=== PATIENT | female | born 1935 | race Caucasian/White ===

== ENCOUNTER 2016-07-04 16:22 | Emergency (ER) | payer MEDICARE, OTHER ==
--- NOTE | 2016-07-04 17:09 | EDM.PDOC ---
ED HPI NEURO - General Chief Complaint: Neurological Problem Stated Complaint: DIZZY Time Seen by Provider: 07/04/16 16:50 Source of Information: Reports: Patient, RN, RN notes reviewed History Limitations: Reports: No limitations - History of Present Illness INITIAL COMMENTS - FREE TEXT/NARRATIVE: Cough for 1-1/2 weeks. Today at 4 p.m. was the passenger in a car with her and had similar onset of being "off balance" an it appeared to her that objects in front of her were tipping or leaning and moving. Episode lasted approximately 4-5 minutes. Denies headache, nausea, vomiting or ear pain. Has history of vertigo, but hasn't had it for several years. Patient states her cough is getting better and going away. Timing/Duration: Reports: Sudden onset Severity: mild Improves with: Reports: None Worsens with: Reports: None Associated Symptoms: Reports: no other symptoms - Related Data Allergies/ADRs: Allergies Allergy/AdvReac Type Severity Reaction Status Date / Time No Known Allergies Allergy Verified 07/04/16 16:34 Home Meds: Home Meds . [No Known Home Meds] 07/04/16 [History] Social & Family History - Family History Family Medical History: Noncontributory ED ROS GENERAL - Review of Systems Review Of Systems: ROS reveals no pertinent complaints other than HPI. ED EXAM, NEURO - Physical Exam Exam: See Below Exam Limited By: No limitations General Appearance: alert, WD/WN, no apparent distress Eye Exam: bilateral eye: normal inspection Ears: other (Right TM retracted but clear. Left TM dull. ) Nose: other (mild inflammation of nasal mucosa.) Throat/Mouth: Normal inspection, Normal lips, Normal teeth, Normal gums, Normal oropharynx, Normal voice, No airway compromise Head Exam: atraumatic, normocephalic Respiratory/Chest: other (occasional mild cough.) Cardiovascular: normal peripheral pulses, regular rate, rhythm, no edema, no gallop, no JVD, no murmur, no rub GI/Abdominal: normal bowel sounds, soft, non tender, no organomegaly, no distention, no abnormal bruit, no mass Neurological: other (left lateral gaze nystagmus.) Back Exam: normal inspection, full range of motion, NT Extremities: normal inspection, normal range of motion, non-tender, no pedal edema, normal capillary refill Psychiatric: normal affect, normal mood Skin Exam: Warm, Dry, Intact, Normal color, No rash EKG INTERPRETATION EKG Date: 07/04/16 Time: 16:53 Rhythm: other (sinus rhythm) Rate (beats/min): 97 [place]: normal P-wave: present QRS: normal ST-T: normal QT: normal Comparison: NA - no prior EKG Course - Vital Signs Last Recorded V/S: Last Vital Signs Temp 37.3 C 07/04/16 16:52 Pulse 101 H 07/04/16 16:52 Resp 18 07/04/16 16:52 BP 184/71 H 07/04/16 16:52 Pulse Ox 97 07/04/16 16:52 - Orders/Labs/Meds Orders: Active Orders 24 hr Category Date Time Status EKG Documentation Completion [RC] URGENT Care 07/04/16 17:05 Active Departure - Departure Time of Disposition: 17:30 Disposition: Home, Self-Care 01 Condition: good Clinical Impression: Vertigo, Viral URI with cough, Elevated blood pressure reading without diagnosis of hypertension Instructions: Vertigo, Eyap-sl-Bbhy Forms: ED Department Discharge Additional Instructions: Rx: Meclizine 25mg Follow up in clinic if any new symptoms develop. Have your primary doctor recheck your blood pressure in the next week. - My Orders Last 24 Hours: My Active Orders 07/04/16 17:05 EKG Documentation Completion [RC] URGENT - Assessment/Plan Last 24 Hours: My Active Orders 07/04/16 17:05 EKG Documentation Completion [RC] URGENT
--- NOTE | 2016-07-08 12:07 | EKG ---
07/04/2016 - TAB COUCH - TIME OF EK hours. I reviewed the EKG and agree with the machine's reading. [facility] /[id number]
== END 2016-07-04 17:46 | disposition home or self-care (01) ==
LOC: DL.ED 16:22
CPT/HCPCS: 93005; 93010; 99283

== ENCOUNTER 2017-08-17 10:28 | Emergency (ER) | payer MEDICARE, OTHER ==
--- NOTE | 2017-08-17 10:45 | EDM.PDOC ---
ED HPI GENERAL MEDICAL PROBLEM - General Stated Complaint: SOB Time Seen by Provider: 08/17/17 10:35 Source of Information: Reports: Patient History Limitations: Reports: No Limitations - History of Present Illness INITIAL COMMENTS - FREE TEXT/NARRATIVE: This 82 yo female patient reports to the ED with increased shortness of breath. The patient reports her symptoms have been getting worse over the past couple of days. The patient reports she has been having a dry cough over the past couple of days. The patient also reports a cramping pain in her upper back. The patient reports her symptoms got much worse this morning after she took a shower. The patient reports that she has not been seen for these symptoms. Onset: Gradual Duration: Day(s): (2), Constant, Getting Worse Location: Reports: Chest, Back (upper back ) Quality: Reports: Pressure Severity: Moderate Improves with: Reports: None Worsens with: Reports: None Context: Reports: Other Associated Symptoms: Reports: No Other Symptoms Upper Back Pain Score (Numeric/FACES): 4 - Related Data Allergies Allergy/AdvReac Type Severity Reaction Status Date / Time No Known Allergies Allergy Verified 07/04/16 16:34 Home Meds: Home Meds Aspirin 1 tab PO BEDTIME 08/17/17 [History] Fish Oil/DHA/EPA [Fish Oil 1,200 MG] 1 cap PO DAILY 08/17/17 [History] Past Medical History - Past Health History Medical/Surgical History: Denies Medical/Surgical History Social & Family History - Family History Family Medical History: Noncontributory - Caffeine Use Caffeine Use: Reports: Coffee ED ROS GENERAL - Review of Systems Review Of Systems: ROS reveals no pertinent complaints other than HPI. ED EXAM, GENERAL - Physical Exam Exam: See Below Exam Limited By: No Limitations General Appearance: Alert, WD/WN, Moderate Distress Eye Exam: Bilateral Eye: EOMI, Normal Inspection, PERRL Ears: Normal External Exam, Normal Canal, Hearing Grossly Normal, Normal TMs Nose: Normal Inspection, Normal Mucosa, No Blood Throat/Mouth: Normal Inspection, Normal Lips, Normal Teeth, Normal Gums, Normal Oropharynx, Normal Voice, No Airway Compromise Head: Atraumatic, Normocephalic Neck: Normal Inspection, Supple, Non-Tender, Full Range of Motion Respiratory/Chest: Decreased Breath Sounds Cardiovascular: Normal Peripheral Pulses, No Edema, No Gallop, No JVD, No Murmur , No Rub, Tachycardia GI/Abdominal: Normal Bowel Sounds, Soft, Non-Tender, No Organomegaly, No Distention, No Abnormal Bruit, No Mass (Female) Exam: Deferred Rectal (Female) Exam: Deferred Back Exam: Normal Inspection, Muscle Spasm Extremities: Normal Inspection, Normal Range of Motion, Non-Tender, Normal Capillary Refill, No Pedal Edema Neurological: Alert, Oriented, CN II-XII Intact, Normal Cognition, Normal Gait, Normal Reflexes, No Motor/Sensory Deficits Psychiatric: Normal Affect, Normal Mood Skin Exam: Warm, Dry, Intact, Normal Color, No Rash Lymphatic: No Adenopathy Course - Vital Signs Last Recorded V/S: Last Vital Signs Temp 36.9 C 08/17/17 10:30 Pulse 122 H 08/17/17 10:30 Resp 40 H 08/17/17 10:30 BP 148/91 H 08/17/17 10:30 Pulse Ox 76 L 08/17/17 10:30 - Orders/Labs/Meds Orders: Active Orders 24 hr Category Date Time Status EKG Documentation Completion [RC] URGENT Care 08/17/17 10:37 Active CULTURE BLOOD [BC] Stat Lab 08/17/17 10:42 Received CULTURE BLOOD [BC] Stat Lab 08/17/17 10:48 Received D-DIMER QUANTITATIVE [COAG] Stat Lab 08/17/17 11:31 Ordered RED BLOOD CELLS LP [BBK] Stat Lab 08/17/17 10:48 Received TYPE AND SCREEN [BBK] Stat Lab 08/17/17 10:48 Received UA W/MICROSCOPIC [URIN] Stat Lab 08/17/17 10:37 Ordered WEAK D TEST [BBK] Stat Lab 08/17/17 10:48 Results Blood Culture x2 Reflex Set [OM.PC] Stat Oth 08/17/17 10:37 Ordered Labs: Laboratory Tests 08/17/17 08/17/17 08/17/17 Range/Units 10:42 10:48 10:48 WBC 15.9 H (5.0-10.0) 10^3/uL RBC 1.56 L (4.2-5.4) 10^6/uL Hgb 6.7 L* (12.0-16.0) g/dL Hct 20.8 L* (37.0-47.0) % MCV 133.3 H (80-100) fL MCH 42.9 H (27.0-34.0) pg MCHC 32.2 L (33.0-35.0) g/dL Plt Count 176 (150-450) 10^3/uL Add Manual Diff Yes Neutrophils % (Manual) 69 (42-75) % Lymphocytes % (Manual) 14 L (20-50) % Monocytes % (Manual) 14 H (2-8) % Eosinophils % (Manual) 3 (1-3) % Sodium 139 (135-145) mmol/L Potassium 3.8 (3.6-5.0) mmol/L Chloride 107 (101-111) mmol/L Carbon Dioxide 21.0 (21.0-31.0) mmol/L Anion Gap 14.8 BUN 19 H (7-18) mg/dL Creatinine 0.7 (0.6-1.3) mg/dL Est Cr Clr Drug Dosing 61.29 mL/min Estimated GFR (MDRD) > 60 BUN/Creatinine Ratio 27.14 Glucose 195 H (74-105) mg/dL Lactic Acid 4.3 H (0.5-2.2) mmol/L Calcium 9.2 (8.4-10.2) mg/dl Total Bilirubin 1.5 H (0.2-1.0) mg/dL AST 36 (10-42) IU/L ALT 36 (10-60) IU/L Alkaline Phosphatase 50 (42-121) IU/L Troponin I 0.05 H* (0.00-0.02) ng/ml B-Natriuretic Peptide 400 H (0-100) pg/ml Total Protein 8.1 (6.7-8.2) g/dl Albumin 5.1 (3.2-5.5) g/dl Globulin 3.0 Albumin/Globulin Ratio 1.70 Blood Type Crossmatch 08/17/17 Range/Units 10:48 WBC (5.0-10.0) 10^3/uL RBC (4.2-5.4) 10^6/uL Hgb (12.0-16.0) g/dL Hct (37.0-47.0) % MCV (80-100) fL MCH (27.0-34.0) pg MCHC (33.0-35.0) g/dL Plt Count (150-450) 10^3/uL Add Manual Diff Neutrophils % (Manual) (42-75) % Lymphocytes % (Manual) (20-50) % Monocytes % (Manual) (2-8) % Eosinophils % (Manual) (1-3) % Sodium (135-145) mmol/L Potassium (3.6-5.0) mmol/L Chloride (101-111) mmol/L Carbon Dioxide (21.0-31.0) mmol/L Anion Gap BUN (7-18) mg/dL Creatinine (0.6-1.3) mg/dL Est Cr Clr Drug Dosing mL/min Estimated GFR (MDRD) BUN/Creatinine Ratio Glucose (74-105) mg/dL Lactic Acid (0.5-2.2) mmol/L Calcium (8.4-10.2) mg/dl Total Bilirubin (0.2-1.0) mg/dL AST (10-42) IU/L ALT (10-60) IU/L Alkaline Phosphatase (42-121) IU/L Troponin I (0.00-0.02) ng/ml B-Natriuretic Peptide (0-100) pg/ml Total Protein (6.7-8.2) g/dl Albumin (3.2-5.5) g/dl Globulin Albumin/Globulin Ratio Blood Type A NEGATIVE Crossmatch See Detail Meds: Medications Discontinued Medications Generic Name Dose Route Start Last Admin Trade Name Freq PRN Reason Stop Dose Admin Aspirin 324 mg 08/17/17 10:48 08/17/17 10:54 Aspirin PO 08/17/17 10:49 324 mg ONETIME ONE Administration Departure - Departure Time of Disposition: 11:57 Disposition: DC/Tfer to Acute Hospital 02 Condition: Poor Clinical Impression: Elevated troponin Anemia Qualifiers: Anemia type: unspecified type Qualified Code(s): D64.9 - Anemia, unspecified Leukocytosis Qualifiers: Leukocytosis type: unspecified Qualified Code(s): D72.829 - Elevated white blood cell count, unspecified - Discharge Information Forms: Interfacility Transfer EMTALA Care Plan Goals: Discussed the patient's history, lab, EKG and x-ray results with Dr. Munoz ( Hospitalist with [facility] in [place]). Dr. Munoz accepted the patient for continued evaluation and further management. The patient will be transported by [facility]. - My Orders Last 24 Hours: My Active Orders 08/17/17 10:37 EKG Documentation Completion [RC] URGENT UA W/MICROSCOPIC [URIN] Stat Blood Culture x2 Reflex Set [OM.PC] Stat 08/17/17 10:42 CULTURE BLOOD [BC] Stat 08/17/17 10:48 CULTURE BLOOD [BC] Stat RED BLOOD CELLS LP [BBK] Stat TYPE AND SCREEN [BBK] Stat WEAK D TEST [BBK] Stat 08/17/17 11:31 D-DIMER QUANTITATIVE [COAG] Stat - Assessment/Plan Last 24 Hours: My Active Orders 08/17/17 10:37 EKG Documentation Completion [RC] URGENT UA W/MICROSCOPIC [URIN] Stat Blood Culture x2 Reflex Set [OM.PC] Stat 08/17/17 10:42 CULTURE BLOOD [BC] Stat 08/17/17 10:48 CULTURE BLOOD [BC] Stat RED BLOOD CELLS LP [BBK] Stat TYPE AND SCREEN [BBK] Stat WEAK D TEST [BBK] Stat 08/17/17 11:31 D-DIMER QUANTITATIVE [COAG] Stat
[2017-08-17] MEDS ORDERED: Aspirin 81 MG Tab.Chew PO ONE (10:48)
--- NOTE | 2017-08-17 10:59 | CR ---
Clinical history: 82-year-old female complaining of shortness of breath. Interpretation: Upright AP portable chest film suggests borderline cardiomegaly with generalized veno us congestion (cephalization). BNP? EKG? Small dependent pleural effusion left base possible but no l ateral or previous films immediately available. No lung mass, hilar lymphadenopathy or focal lobar pneumonia. No atelectasis/collapse. No pneumothorax. CONCLUSION: Suspicious.
[2017-08-17 11:24] LABS: CHLORIDE,CL 107 mmol/L (101-111); SODIUM,NA 139 mmol/L (135-145)
[2017-08-17 12:32] VITALS: BP 132/56
== END 2017-08-17 13:05 ==
LOC: DL.ED 10:28
DX: D64.9 Anemia, unspecified (principal); D72.829 Elevated white blood cell count, unspecified; R79.89 Other specified abnormal findings of blood chemistry
CPT/HCPCS: 36415; 36430; 71045; 80053; 82272; 83605; 83880; 84484; 85025; 85379; 86850; 86900; 86901; 86920; 86922; 87040; 93005; 93010; 99285; A9270; P9016; 87077; 87186

== ENCOUNTER 2017-10-16 09:08 | Emergency (ER) | payer MEDICARE, OTHER ==
[2017-10-16 09:34] VITALS: BP 158/65
[2017-10-16 10:24] LABS: ANION GAP 12.9; CHLORIDE,CL 105 mmol/L (101-111); SODIUM,NA 139 mmol/L (135-145)
--- NOTE | 2017-10-16 10:29 | EDM.PDOC ---
ED HPI GENERAL MEDICAL PROBLEM - General Chief Complaint: Neurological Problem Stated Complaint: DIZZY [id number] Time Seen by Provider: 10/16/17 10:00 Source of Information: Reports: Patient, Family, RN, RN Notes Reviewed History Limitations: Reports: No Limitations - History of Present Illness INITIAL COMMENTS - FREE TEXT/NARRATIVE: Pt to ER with her with c/o dizziness. Patient states she was sitting on the couch reading her higinio when she had about 30 seconds of dizziness, where she felt the room was spinning. Patient denies any further pain or problems associated. Patient states she feels good right now. She states she had a slight pressure headache during the time of the dizziness. Pt states she was recently diagnosed with leukemia and will be monitored monthly for lab. Onset: Today, Sudden - Related Data Allergies Allergy/AdvReac Type Severity Reaction Status Date / Time No Known Allergies Allergy Verified 10/16/17 09:30 Home Meds: Home Meds Fish Oil/DHA/EPA [Fish Oil 1,200 MG] 1 cap PO DAILY 08/17/17 [History] amLODIPine Besylate [Amlodipine Besylate] 5 mg PO DAILY 10/16/17 [History] Past Medical History - Past Health History Medical/Surgical History: Denies Medical/Surgical History HEENT History: Reports: Hard of Hearing, Impaired Vision, Other (See Below) Other HEENT History: wears hearing aideshas reading glasses Cardiovascular History: Reports: Hypertension Respiratory History: Reports: None Gastrointestinal History: Reports: None Genitourinary History: Reports: None ARCHITECTURE DRAFTER History: Reports: None Musculoskeletal History: Reports: Arthritis Neurological History: Reports: None Psychiatric History: Reports: None Hematologic History: Reports: Blood Transfusion(s) Immunologic History: Reports: None Oncologic (Cancer) History: Reports: Leukemia Dermatologic History: Reports: None - Infectious Disease History Infectious Disease History: Reports: Chicken Pox, Hepatitis A, Measles, Mumps - Past Surgical History Head Surgeries/Procedures: Reports: None GI Surgical History: Reports: EGD Social & Family History - Family History Family Medical History: Noncontributory - Tobacco Use Smoking Status *Q: Never Smoker Second Hand Smoke Exposure: No - Caffeine Use Caffeine Use: Reports: Coffee - Recreational Drug Use Recreational Drug Use: No ED ROS GENERAL - Review of Systems Review Of Systems: ROS reveals no pertinent complaints other than HPI. ED EXAM, DIZZINESS - Physical Exam Exam: See Below Exam Limited By: No Limitations General Appearance: Alert, WD/WN, No Apparent Distress Eye Exam: Bilateral Eye: EOMI, Normal Inspection Ears: Normal External Exam, Hearing Grossly Normal, Other (hearing aids bilaterally) Nose: Normal Inspection Throat/Mouth: Normal Inspection, Normal Voice, No Airway Compromise Head Exam: Atraumatic, Normocephalic Vertigo: short duration Neck: Normal Inspection, Supple, Non-Tender, Full Range of Motion Respiratory/Chest: No Respiratory Distress, Lungs Clear, Normal Breath Sounds, No Accessory Muscle Use, Chest Non-Tender Cardiovascular: Normal Peripheral Pulses, Regular Rate, Rhythm, No Edema, No Gallop, No JVD, No Murmur, No Rub GI/Abdominal: Normal Bowel Sounds, Soft, Non-Tender, No Distention (Female) Exam: Deferred Rectal (Female) Exam: Deferred Neurological: Alert, Normal Mood/Affect, Normal Dorsiflexion, CN II-XII Intact, Normal Plantar Flexion, Normal Gait, Normal Reflexes, No Motor/Sensory Deficits , Oriented x 3 Back Exam: Normal Inspection, Full Range of Motion Extremities: Normal Inspection, Normal Range of Motion, Non-Tender, No Pedal Edema, Normal Capillary Refill Psychiatric: Normal Affect, Normal Mood Skin Exam: Warm, Dry, Intact, Normal Color, No Rash EKG INTERPRETATION EKG Date: 10/16/17 Time: 09:45 Rhythm: NSR Rate (Beats/Min): 91 Comparison: Change From Previous EKG Course - Vital Signs Last Recorded V/S: Last Vital Signs Temp 99.7 F 10/16/17 09:21 Pulse 90 10/16/17 09:34 Resp 16 10/16/17 09:34 BP 158/65 H 10/16/17 09:34 Pulse Ox 98 10/16/17 09:34 - Orders/Labs/Meds Orders: Active Orders 24 hr Category Date Time Status EKG Documentation Completion [RC] STAT Care 10/16/17 09:46 Active UA W/MICROSCOPIC [URIN] Stat Lab 10/16/17 09:46 Ordered Labs: Laboratory Tests 10/16/17 10/16/17 Range/Units 09:57 09:57 WBC 11.3 H (5.0-10.0) 10^3/uL RBC 2.37 L (4.2-5.4) 10^6/uL Hgb 8.9 L D (12.0-16.0) g/dL Hct 26.7 L (37.0-47.0) % MCV 112.7 H D (80-100) fL MCH 37.6 H (27.0-34.0) pg MCHC 33.3 (33.0-35.0) g/dL Plt Count 137 L (150-450) 10^3/uL Lymph % (Auto) 13.6 L (20.5-50.1) % [place] % (Auto) 19.0 H (2-8) % Eos % (Auto) 3.3 H (1.0-3.0) % Add Manual Diff Yes Neutrophils % (Manual) 68 (42-75) % Band Neutrophils % 1 % Lymphocytes % (Manual) 19 L (20-50) % Monocytes % (Manual) 10 H (2-8) % Eosinophils % (Manual) 2 (1-3) % Hypochromasia 1+ slight Sodium 139 (135-145) mmol/L Potassium 3.9 (3.6-5.0) mmol/L Chloride 105 (101-111) mmol/L Carbon Dioxide 25.0 (21.0-31.0) mmol/L Anion Gap 12.9 BUN 18 (7-18) mg/dL Creatinine 0.6 (0.6-1.3) mg/dL Est Cr Clr Drug Dosing 71.51 mL/min Estimated GFR (MDRD) > 60 BUN/Creatinine Ratio 30.00 Glucose 146 H (74-105) mg/dL Calcium 9.5 (8.4-10.2) mg/dl Total Bilirubin 1.5 H (0.2-1.0) mg/dL AST 26 (10-42) IU/L ALT 23 (10-60) IU/L Alkaline Phosphatase 56 (42-121) IU/L Troponin I < 0.02 (0.00-0.02) ng/ml Total Protein 7.6 (6.7-8.2) g/dl Albumin 4.7 (3.2-5.5) g/dl Globulin 2.9 Albumin/Globulin Ratio 1.62 Departure - Departure Time of Disposition: 10:33 Disposition: Home, Self-Care 01 Condition: Fair Clinical Impression: Dizziness Anemia Qualifiers: Anemia type: unspecified type Qualified Code(s): D64.9 - Anemia, unspecified - Discharge Information *PRESCRIPTION DRUG MONITORING PROGRAM REVIEWED*: No *COPY OF PRESCRIPTION DRUG MONITORING REPORT IN PATIENT BUCK: No Instructions: Vertigo, [id number], Dizziness, [id number] Forms: ED Department Discharge Additional Instructions: Drink plenty of water Follow up with your primary care facility for a recheck of the hemoglobin Rest - My Orders Last 24 Hours: My Active Orders 10/16/17 09:46 EKG Documentation Completion [RC] STAT UA W/MICROSCOPIC [URIN] Stat - Assessment/Plan Last 24 Hours: My Active Orders 10/16/17 09:46 EKG Documentation Completion [RC] STAT UA W/MICROSCOPIC [URIN] Stat
--- NOTE | 2017-10-17 11:26 | EKG ---
10/16/2017 - TAB COUCH - TIME: 9:45 p.m. FINDINGS: As per my reading, sinus rhythm at 91. [facility] /[id number]
== END 2017-10-16 10:41 | disposition home or self-care (01) ==
LOC: DL.ED 09:08
DX: D64.9 Anemia, unspecified (principal); I10 Essential (primary) hypertension; Z79.899 Other long term (current) drug therapy
CPT/HCPCS: 36415; 80053; 84484; 85025; 99283; 99284

== ENCOUNTER 2018-08-04 16:45 | Emergency (ER) | payer MEDICARE, OTHER ==
[2018-08-04 17:29] VITALS: BP 164/74
[2018-08-04 17:58] LABS: ANION GAP 14.9; CHLORIDE,CL 104 mmol/L (101-111); SODIUM,NA 138 mmol/L (135-145)
--- NOTE | 2018-08-04 18:16 | EDM.PDOC ---
Scribed by Amita Mcdonald 08/04/18 [id number] for Harjinder Phan MD ED HPI GENERAL MEDICAL PROBLEM - General Chief Complaint: General Stated Complaint: DIZZY, MIND ISSUES Time Seen by Provider: 08/04/18 17:07 Source of Information: Reports: Patient, RN, RN Notes Reviewed History Limitations: Reports: No Limitations - History of Present Illness INITIAL COMMENTS - FREE TEXT/NARRATIVE: Patient presents to ER with complaint that she was getting into the vehicle to go to her daughters about a 1/2 hour ago and just didn't feel right and thought she might get dizzy but didn't. States yesterday her daughter got upset with them and she didn't sleep all night and her mind keep going. States she is a very nervous person. Is on Chemo which she does for 1 week every month and due in 1 week. Temp 100.1. States she has not had a cold, cough, problems voiding , or other concerns. Onset: Today Duration: Constant Severity: Mild Improves with: Reports: None Worsens with: Reports: None Associated Symptoms: Reports: No Other Symptoms - Related Data Allergies Allergy/AdvReac Type Severity Reaction Status Date / Time No Known Allergies Allergy Verified 08/04/18 16:56 Home Meds: Home Meds Fish Oil/DHA/EPA [Fish Oil 1,200 MG] 1 cap PO DAILY 08/17/17 [History] amLODIPine Besylate [Amlodipine Besylate] 5 mg PO DAILY 10/16/17 [History] Acetaminophen [Tylenol Extra Strength] 500 mg PO ASDIRECTED 01/09/18 [History] LORazepam 1 mg PO Q6H 01/09/18 [History] Ondansetron HCl [Ondansetron] 8 mg PO Q8H 01/09/18 [History] Prochlorperazine [Compazine] 10 mg PO Q6H 01/09/18 [History] Past Medical History - Past Health History Medical/Surgical History: Denies Medical/Surgical History HEENT History: Reports: Hard of Hearing, Impaired Vision, Other (See Below) Other HEENT History: wears hearing aideshas reading glasses Cardiovascular History: Reports: Hypertension Respiratory History: Reports: None Gastrointestinal History: Reports: None Genitourinary History: Reports: None [employer]ING [employer] SUPER[employer] History: Reports: None Musculoskeletal History: Reports: Arthritis Neurological History: Reports: Migraines Psychiatric History: Reports: None Endocrine/Metabolic History: Reports: None Hematologic History: Reports: Blood Transfusion(s) Immunologic History: Reports: None Oncologic (Cancer) History: Reports: Leukemia Dermatologic History: Reports: None - Infectious Disease History Infectious Disease History: Reports: Chicken Pox, Measles, Mumps, Rubella - Past Surgical History Head Surgeries/Procedures: Reports: None Cardiovascular Surgical History: Reports: Other (See Below) Other Cardiovascular Surgeries/Procedures: ECOCARDIOGRAM GI Surgical History: Reports: EGD Female Surgical History: Reports: None Oncologic Surgical History: Reports: Other (See Below) Other Oncologic Surgeries/Procedures: BONE MARROW BIOPSY 2017 Social & Family History - Family History Family Medical History: Noncontributory - Caffeine Use Caffeine Use: Reports: Coffee - Living Situation & Occupation Living situation: Reports: , with Spouse Occupation: Retired ED ROS GENERAL - Review of Systems Review Of Systems: ROS reveals no pertinent complaints other than HPI. ED EXAM, GENERAL - Physical Exam Exam: See Below Exam Limited By: No Limitations General Appearance: Alert, WD/WN, No Apparent Distress, Anxious Eye Exam: Bilateral Eye: EOMI, Normal Inspection, PERRL Ears: Hearing Loss (chronic/stable) Nose: Normal Inspection, Normal Mucosa, No Blood Throat/Mouth: Normal Inspection, Normal Lips, Normal Teeth, Normal Gums, Normal Oropharynx, Normal Voice, No Airway Compromise Head: Atraumatic, Normocephalic Neck: Normal Inspection, Supple, Non-Tender, Full Range of Motion Respiratory/Chest: No Respiratory Distress, Lungs Clear, Normal Breath Sounds, No Accessory Muscle Use, Chest Non-Tender Cardiovascular: Regular Rate, Rhythm, No Edema GI/Abdominal: Normal Bowel Sounds, Soft, Non-Tender, No Distention Back Exam: Normal Inspection Extremities: Normal Inspection, Normal Range of Motion, Non-Tender, Normal Capillary Refill, No Pedal Edema Neurological: Alert, Oriented, CN II-XII Intact, Normal Cognition, Normal Gait, No Motor/Sensory Deficits Psychiatric: Anxious Skin Exam: Warm, Dry, Intact, Normal Color, No Rash Course - Vital Signs Last Recorded V/S: Last Vital Signs Temp 37.8 C 08/04/18 16:48 Pulse 97 08/04/18 16:48 Resp 14 08/04/18 16:48 BP 164/74 H 08/04/18 16:48 Pulse Ox 98 08/04/18 16:48 - Orders/Labs/Meds Orders: Active Orders 24 hr Category Date Time Status CULTURE URINE [RM] Stat Lab 08/04/18 17:50 Received Labs: Laboratory Tests 08/04/18 08/04/18 08/04/18 Range/Units 17:30 17:30 17:50 WBC 5.8 (5.0-10.0) 10^3/uL RBC 3.84 L (4.2-5.4) 10^6/uL Hgb 13.6 D (12.0-16.0) g/dL Hct 39.2 (37.0-47.0) % MCV 102.1 H D (80-100) fL MCH 35.4 H (27.0-34.0) pg MCHC 34.7 (33.0-35.0) g/dL Plt Count 123 L (150-450) 10^3/uL Neut % (Auto) (42.2-75.2) % Add Manual Diff Yes Neutrophils % (Manual) 48 (42-75) % Lymphocytes % (Manual) 32 (20-50) % Monocytes % (Manual) 14 H (2-8) % Eosinophils % (Manual) 5 H (1-3) % Basophils % (Manual) 1 Sodium 138 (135-145) mmol/L Potassium 3.9 (3.6-5.0) mmol/L Chloride 104 (101-111) mmol/L Carbon Dioxide 23.0 (21.0-31.0) mmol/L Anion Gap 14.9 BUN 21 H (7-18) mg/dL Creatinine 0.7 (0.6-1.3) mg/dL Est Cr Clr Drug Dosing 60.25 mL/min Estimated GFR (MDRD) > 60 BUN/Creatinine Ratio 30.00 Glucose 146 H (74-105) mg/dL Calcium 9.3 (8.4-10.2) mg/dl Total Bilirubin 1.3 H (0.2-1.0) mg/dL AST 30 (10-42) IU/L ALT 30 (10-60) IU/L Alkaline Phosphatase 60 (42-121) IU/L Total Protein 7.8 (6.7-8.2) g/dl Albumin 4.6 (3.2-5.5) g/dl Globulin 3.2 Albumin/Globulin Ratio 1.44 Urine Color Yellow (YELLOW) Urine Appearance Slightly cloudy (CLEAR) Urine pH 7.0 (5.0-9.0) Ur Specific Irene 1.015 (1.005-1.030) Urine Protein Negative (NEGATIVE) Urine Glucose (UA) Negative (NEGATIVE) Urine Ketones Negative (NEGATIVE) Urine Occult Blood Negative (NEGATIVE) Urine Nitrite Negative (NEGATIVE) Urine Bilirubin Negative (NEGATIVE) Urine Urobilinogen 0.2 (0.2-1.0) mg/dL Ur Leukocyte Esterase Small H (NEGATIVE) Urine RBC Not seen /HPF Urine WBC 0-5 (0-5/HPF) /HPF Ur Epithelial Cells Moderate H /HPF Urine Bacteria Few (0-FEW/HPF) /HPF - Re-Assessments/Exams Free Text/Narrative Re-Assessment/Exam: 08/04/18 18:14 Pt feels well and symptom free without any interventions. She would like to go home and rest. She feels that the altercation with her daughter caused an anxiety attack, which has not passed. Departure - Departure Time of Disposition: 18:15 Disposition: Home, Self-Care 01 Condition: Good Clinical Impression: Stress reaction, emotional, Encounter for medical screening examination - Discharge Information *PRESCRIPTION DRUG MONITORING PROGRAM REVIEWED*: No *COPY OF PRESCRIPTION DRUG MONITORING REPORT IN PATIENT BUCK: No Instructions: Stress, Living With Anxiety Forms: ED Department Discharge Additional Instructions: Rest today. Follow up in clinic with your doctor if you have any further problems. - My Orders Last 24 Hours: My Active Orders 08/04/18 17:50 CULTURE URINE [RM] Stat - Assessment/Plan Last 24 Hours: My Active Orders 08/04/18 17:50 CULTURE URINE [RM] Stat I have read and agree with the documentation that has been completed regarding this visit. By signing this record, I attest that the documentation was completed in my physical presence and is an accurate record of the encounter.
== END 2018-08-04 18:33 | disposition home or self-care (01) ==
LOC: DL.ED 16:45
DX: F43.8 Other reactions to severe stress (principal); I10 Essential (primary) hypertension; Z79.899 Other long term (current) drug therapy
CPT/HCPCS: 36415; 80053; 81001; 85025; 87086; 99284